=== PATIENT | male | born 1985 | race Hispanic/Latino ===

== ENCOUNTER 2018-04-09 19:04 | Emergency (ER) | payer OTHER ==
[2018-04-09 19:12] VITALS: BMI 24.3
[2018-04-09 19:17] VITALS: O2SAT 98
[2018-04-09] MEDS ORDERED: DiphenhydrAMINE 50 mg/ml Inj IVP ONE (19:27)
[2018-04-09 20:08] LABS: INFLUENZA A B NEGATIVE FOR FLU A/B (NEGATIVE)
--- NOTE | 2018-04-09 20:34 | ED PDOC ---
Arrival/HPI - General Chief Complaint: Allergic Reaction Historian: Patient - History of Present Illness Narrative History of Present Illness (Text): 04/09/18 20:28 32yo male with no pmhx who present with complaint of throat swelling, nasal congestion/rhinorrhea, subjective fever, difficulty swallowing. 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 Denies cough, travel, chest pain, nausea, vomiting, drooling, stridor, any other complaint. Denies any inciting factors for allergic reaction. Past Medical History - Provider Review Nursing Documentation Reviewed: Yes - Infectious Disease Hx of Infectious Diseases: None - Tetanus Immunization Tetanus Immunization: Unknown - Past Medical History Past Medical History: No Previous - Psychiatric Hx Substance Use: No - Past Surgical History Past Surgical History: No Previous - Anesthesia Hx Anesthesia: No - Suicidal Assessment Feels Threatened In Home Enviroment: No Family/Social History - Physician Review Nursing Documentation Reviewed: Yes Family/Social History: Unknown Family HX Smoking Status: Never Smoked Hx Alcohol Use: Yes Hx Substance Use: No Hx Substance Use Treatment: No Allergies/Home Meds Allergies/Adverse Reactions: Allergies No Known Allergies Allergy (Verified 04/09/18 19:12) Review of Systems - Physician Review All systems were reviewed & negative as marked: Yes - Review of Systems Constitutional: Normal Eyes: Normal ENT: Sore Throat, Rhinorrhea, Sinus Congestion Respiratory: Normal Cardiovascular: Normal Gastrointestinal: Normal Genitourinary Male: Normal Musculoskeletal: Normal Skin: Normal Neurological: Normal Endocrine: Normal Hemo/Lymphatic: Normal Psychiatric: Normal Physical Exam Vital Signs Reviewed: Yes Vital Signs Temp Pulse Resp BP Pulse Ox 04/09/18 19:16 98.2 F 96 H 18 143/88 98 Temperature: Afebrile Blood Pressure: Normal Pulse: Regular Respiratory Rate: Normal Appearance: Positive for: Well-Appearing, Non-Toxic, Comfortable Pain Distress: None Mental Status: Positive for: Alert and Oriented X 3 - Systems Exam Head: Present: Atraumatic, Normocephalic Pupils: Present: PERRL Extroacular Muscles: Present: EOMI Conjunctiva: Present: Normal Mouth: Present: Moist Mucous Membranes. No: Drooling Pharnyx: Present: Normal. No: ERYTHEMA, EXUDATE, TONSILS ENLARGED, Peritonsilar Swelling, Uvular Deviation, Muffled/Hoarse Voice, Strider Nose (Internal): Present: Edematous (b/l) Neck: Present: Normal Range of Motion Respiratory/Chest: Present: Clear to Auscultation, Good Air Exchange. No: Respiratory Distress, Accessory Muscle Use Cardiovascular: Present: Regular Rate and Rhythm, Normal S1, S2. No: Murmurs Abdomen: No: Tenderness, Distention, Peritoneal Signs Back: Present: Normal Inspection Upper Extremity: Present: Normal Inspection. No: Cyanosis, Edema Lower Extremity: Present: Normal Inspection. No: Edema Neurological: Present: GCS=15, CN II-XII Intact, Speech Normal Skin: Present: Warm, Dry, Normal Color. No: Rashes Psychiatric: Present: Alert, Oriented x 3, Normal Insight, Normal Concentration Medical Decision Making ED Course and Treatment: 04/10/18 01:48 32yo male present to ED for stated history. He was controlling his secretions. No stridor and in no distress. He was treated with Solu medrol/Benadryl for possible allergic reaction. On re evaluation he notes improvement of his symptoms. rapid flu/strep was both negative His symptoms is likely allergic reaction vs allergies Result was DW the pt and he was DC home with prednisone and Benadryl. referred to his PMD. - Medication Orders Current Medication Orders: Discontinued Medications Diphenhydramine HCl (Benadryl) 25 mg IVP ONCE ONE Stop: 04/09/18 19:28 Last Admin: 04/09/18 19:49 Dose: 25 mg IVP Administration Document 04/09/18 19:49 RC (Rec: 04/09/18 19:49 [email or web address]) Charges for Administration # of IVP Administrations 1 Methylprednisolone (Solu-Medrol) 125 mg IVP STAT STA Stop: 04/09/18 19:28 Last Admin: 04/09/18 19:45 Dose: 125 mg IVP Administration Document 04/09/18 19:45 RC (Rec: 04/09/18 19:49 [email or web address]) Charges for Administration # of IVP Administrations 1 Disposition/Present on Arrival - Present on Arrival Any Indicators Present on Arrival: No History of DVT/PE: No History of Uncontrolled Diabetes: No Urinary Catheter: No History of Decub. Ulcer: No History Surgical Site Infection Following: None - Disposition Have Diagnosis and Disposition been Completed?: Yes Diagnosis: Allergic reaction, Allergic rhinitis Disposition: HOME/ ROUTINE Disposition Time: 20:35 Patient Plan: Discharge Condition: STABLE Discharge Instructions (ExitCare): Sinusitis, Adult (DC) Additional Instructions: Follow up with your doctor Return to ED for any new or worsening symptoms Prescriptions: DiphenhydrAMINE [Benadryl] 25 mg PO Q6 #20 cap predniSONE [Prednisone] 20 mg PO DAILY #4 tab Referrals: Aline Casiano MD [Primary Care Provider] - Follow up with primary Forms: [employer] ([place] [employer]), WORK NOTE
[2018-04-09 21:05] VITALS: BP 149/78; PULSE 85; RESP 16; TEMP 97.8
== END 2018-04-09 21:04 | disposition home or self-care (01) ==
LOC: ED 19:04
DX: J30.9 Allergic rhinitis, unspecified (principal); T78.40XA Allergy, unspecified, initial encounter; X58.XXXA Exposure to other specified factors, initial encounter
CPT/HCPCS: 87070; 87430; 87804; 96374; 96375; 99282; J1200; J2930